=== PATIENT | male | born 1965 | race Caucasian/White ===

== ENCOUNTER 2017-05-03 07:55 | Day surgery (SDC) | payer OTHER ==
[~2017-05-03] VITALS: Ht 172.7 cm; Wt 65.8 kg
[~2017-05-03 07:55] MED LIST: ASPIRIN325 MG PO; CARISOPRODOL350 MG PO; DIAZEPAM5 MG PO; HYDROCODON-ACE1 EAC8 PO; LAMOTRIGINE200 MG PO; LISINOPRIL5 MG PO; MELOXICAM15 MG PO; RANITIDINE HCL150 MG PO; TIZANIDINE HCL4 MG PO
--- NOTE | 2017-05-03 09:27 | NUR ---
05/03/17 0927 Monique Cali 3599-PATIENT ARRIVED TO PACU ON 6L MASK O2 SAT 100% PATIENT NONAROUSABLE. LAYING ON LEFT LATERAL SIDE. ABDOMEN ROUND AND SOFT. SR.
--- NOTE | 2017-05-05 14:06 | OR ---
[facility] [address] [place], [place] [address] Signed DATE OF SERVICE: 05/03/2017 PREOPERATIVE DIAGNOSIS: Screening. POSTOPERATIVE DIAGNOSES: A 5-mm polyp at 42 cm. Minimal sigmoid diverticulosis. Minimal internal hemorrhoids. Indurated prostate, left greater than right. PROCEDURE: Colonoscopy with hot biopsy. ESTIMATED BLOOD LOSS: None. INDICATIONS: Jasmin is a 52-year-old gentleman who was asked to see me for a colonoscopy. He has had vague lower abdominal pains, but otherwise, he has no lower GI complaints. There is no family history of colon cancer or polyps. He is disabled because of his back and has to take hydrocodone up to 4 times a day. Although, he has weaned himself off that and has been using quite a bit of Tylenol. He also likes a little marijuana each day and sometimes needs tizanidine. In the office, I gave him a booklet on colonoscopy and we looked at it together. He understands the nature of the test along with the risks including but not limited to gas bloating, crampy abdominal pain, bleeding, perforation, requiring surgery, and missed diagnosis. Also, he understands the need for IV conscious sedation. Given his above situation, we asked an anesthesia provider to help us with increased monitoring and sedation with propofol. He had expressed understanding and wished to proceed. PROCEDURE NOTE: Jasmin was taken into our endoscopy suite and placed in the left lateral decubitus position. He was given IV sedation with propofol per nurse director of strategic sourcing. A digital rectal exam was performed and he does have a slightly enlarged and indurated prostate, also the left side is a little more prominent than the right. After this, the adult colonoscope was introduced and advanced all the way around into the cecum under direct visualization with camera without difficulty. His prep was quite good. We found just a small polypoid lesion at 42 cm, which we removed with a hot biopsy forceps. He also has a few small diverticula in the sigmoid colon. The rectum itself was unremarkable. Upon retroflexion of scope, he has very small internal hemorrhoid columns. After this, the gas was suctioned out. The colonoscope removed. Figueroa tolerated the procedure quite well. RECOMMENDATIONS: Figueroa foster ollow up in my office in 7-14 days to review his results. Electronically Signed By: MARY PALACIOS MD 05/05/17 1406 PATIENT NAME: JASMIN CHAWLA OPERATIVE REPORT DATE OF : 61 PHYSICIAN: MARY PALACIOS MD REPORT #: [id number] REPORT IS CONFIDENTIAL AND NOT TO BE RELEASED WITHOUT AUTHORIZATION [facility] [address] [place], [place] [address] Signed Mary Palacios MD AB/Modl /[id number] cc: Dr. Nicholas Hester . Mary Palacios MD Electronically Signed By: MARY PALACIOS MD 05/05/17 1406 PATIENT NAME: JASMIN CHAWLA OPERATIVE REPORT DATE OF : 61 PHYSICIAN: MARY PALACIOS MD REPORT #: [id number] REPORT IS CONFIDENTIAL AND NOT TO BE RELEASED WITHOUT AUTHORIZATION
== END 2017-05-03 10:07 | disposition home or self-care (01) ==
LOC: OPS 07:55 → DS 07:55 → OPS 08:30
PROVIDERS: Colon & Rectal Surgery
PROC: 0DBE8ZX Excision of Large Intestine, Via Natural or Artificial Opening Endoscopic, Diagnostic (ICD-10-PCS; principal; 2017-05-03 08:30)
DX: Z12.11 Encounter for screening for malignant neoplasm of colon (principal); D12.6 Benign neoplasm of colon, unspecified; K57.30 Diverticulosis of large intestine without perforation or abscess without bleeding; K64.8 Other hemorrhoids; I10 Essential (primary) hypertension; K21.9 Gastro-esophageal reflux disease without esophagitis; E78.5 Hyperlipidemia, unspecified; M19.90 Unspecified osteoarthritis, unspecified site; D64.9 Anemia, unspecified; Z86.73 Personal history of transient ischemic attack (TIA), and cerebral infarction without residual deficits; Z87.891 Personal history of nicotine dependence; Z90.89 Acquired absence of other organs; Z90.81 Acquired absence of spleen
CPT/HCPCS: 00810; J2250; J2704; J3010

== ENCOUNTER 2019-10-11 05:50 | Day surgery (SDC) | payer OTHER ==
[~2019-10-11] VITALS: Ht 172.7 cm; Wt 61.2 kg
== END 2019-10-11 08:05 | disposition home or self-care (01) ==
LOC: DS 05:50 → OPS 05:50 → DS 06:45 → OPS 08:05 → DS 12:00
PROC: 01N50ZZ Release Median Nerve, Open Approach (ICD-10-PCS; principal; 2019-10-11)
DX: G56.03 Carpal tunnel syndrome, bilateral upper limbs (principal); F12.90 Cannabis use, unspecified, uncomplicated; Z79.899 Other long term (current) drug therapy; Z79.82 Long term (current) use of aspirin; Z86.73 Personal history of transient ischemic attack (TIA), and cerebral infarction without residual deficits; Z87.891 Personal history of nicotine dependence
CPT/HCPCS: J0690; J2250; J2704; J3010; J7121

== ENCOUNTER 2021-03-24 14:11 | Emergency (ER) | payer OTHER ==
[~2021-03-24] VITALS: Ht 172.7 cm; Wt 61.2 kg
[~2021-03-24 14:11] MED LIST changes: +HYDROCODON-ACE1 EA10 PO
[2021-03-24] MEDS ORDERED: PRAMIPEXOLE D0.25 MG PO (14:18)
[2021-03-24] MEDS ORDERED: NEURONTIN100 MG PO (16:47)
[2021-03-24] MEDS ORDERED: PREDNISONE1 MG PO (16:47)
--- NOTE | 2021-03-25 18:33 | EKG ---
[facility] [address] [facility] [place] [address] Signed Normal sinus rhythm Possible Left atrial enlargement Borderline ECG When compared with ECG of 08-OCT-2019 11:06, No significant change was found Confirmed by RADHA PEREZ MD ([id number]) on 03/25/2021 6:33:04 PM Electronically Signed By: RADHA PEREZ MD 03/25/211832 PATIENT NAME: DENTONJASMIN LIZZIE Electrocardiogram DATE OF : 61 PHYSICIAN: RADHA PEREZ MD REPORT #: [id number] REPORT IS CONFIDENTIAL AND NOT TO BE RELEASED WITHOUT AUTHORIZATION
== END 2021-03-24 17:17 | disposition home or self-care (01) ==
LOC: ED 14:11
DX: M54.16 Radiculopathy, lumbar region (principal); Z20.822 Contact with and (suspected) exposure to COVID-19; I10 Essential (primary) hypertension; Z87.891 Personal history of nicotine dependence; Z79.899 Other long term (current) drug therapy; Z79.82 Long term (current) use of aspirin
CPT/HCPCS: 71275; 74174; 80053; 81001; 84484; 85025; 85379; 86850; 86900; 86901; 93005; 93010; 96361; 99284-25; C9803; J1170; J2405; J7030; Q9967; U0003

== ENCOUNTER 2021-03-26 08:48 | Emergency (ER) | payer OTHER ==
[~2021-03-26] VITALS: Ht 172.7 cm; Wt 61.2 kg
[~2021-03-26 08:48] MED LIST changes: +NEURONTIN100 MG PO; +PRAMIPEXOLE D0.25 MG PO; +PREDNISONE1 MG PO
--- OUTSIDE RECORDS SUMMARY | 2021-03-26 08:52 | XMS ---
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 [place] VISIT COUNT (12 MO[address] [facility] TOTAL 2 NOTE: Visits indicate total known visits. ED/UCC VISIT TRACKING (12 MO.) 03/26/2021 08:49 VLADIMIR Arellano OR TYPE: Emergency COMPLAINT: - TURNING BLUE, BREATHING ISSUES 03/24/2021 14:12 VLADIMIR Arellano OR TYPE: Emergency COMPLAINT: - NEAR SYNCOPE EPISODE INPATIENT VISIT TRACKING (12 MO.) No inpatient visits to display in this time frame [email or web address]
--- NOTE | 2021-03-27 14:06 | EKG ---
[facility] [address] [facility] [place], [place] [address] Signed Sinus tachycardia Nonspecific ST and T wave abnormality Abnormal ECG When compared with ECG of 26-MAR-2021 08:57, (Unconfirmed) ST no longer depressed in Anterior leads Nonspecific T wave abnormality, worse in Inferior leads Confirmed by ELISA HENDRIX DO ([id number]) on 03/27/2021 2:05:58 PM Electronically Signed By: ELISA HENDRIX DO 03/27/21 1406 PATIENT NAME: JASMIN CHAWLA LIZZIE Electrocardiogram DATE OF : 61 PHYSICIAN: ELISA HENDRIX DO REPORT #: [id number] REPORT IS CONFIDENTIAL AND NOT TO BE RELEASED WITHOUT AUTHORIZATION
== END 2021-03-26 13:43 | disposition short-term general hospital (02) ==
LOC: ED 08:48
DX: N17.9 Acute kidney failure, unspecified (principal); J96.01 Acute respiratory failure with hypoxia; E87.2 Acidosis; Z20.822 Contact with and (suspected) exposure to COVID-19; I10 Essential (primary) hypertension; Z87.891 Personal history of nicotine dependence; Z79.52 Long term (current) use of systemic steroids; Z79.899 Other long term (current) drug therapy; Z79.82 Long term (current) use of aspirin
CPT/HCPCS: 71045; 80053; 81001; 82010; 82803; 83605; 84484; 85007; 85025; 93005; 93010; 96365; 96375; 99285-25; C9803; G0480; J2543; J7030; U0003

== ENCOUNTER 2024-10-16 05:55 | Day surgery (SDC) | payer OTHER ==
[2024-10-08 11:32] VITALS: BP 130/87
[~2024-10-16] VITALS: Ht 172.7 cm; Wt 61.4 kg
[2024-10-16 06:07] VITALS: BP 146/98
[2024-10-16] MEDS ORDERED: LACTATED RINGER'S 1,000 ML IV SCH (07:00)
[2024-10-16] MEDS ORDERED: IBLOOD GLUCOSE TEST STRIP 1 EA TEST VI PRN (07:00)
[2024-10-16] MEDS ORDERED: CEFAZOLIN SODIUM 2 GM/20 ML SYR IV SCH (07:00)
[2024-10-16] MEDS ORDERED: LIDOCAINE HCL 1% 5 ML SDV INJ ONE (07:00)
[2024-10-16] MEDS ORDERED: LIDOCAINE HCL 2% 5 ML SDV ONE (07:14)
[2024-10-16] MEDS ORDERED: propofoL 200 MG/20 ML VIAL ONE (07:14)
--- NOTE | 2024-10-16 07:37 | NUR ---
PT NOT AVAILABLE FOR VISIT. PROVIDED PRAYER.
[2024-10-16] MEDS ORDERED: fentaNYL citrate 100 MCG/2 ML VIAL ONE (07:41)
--- NOTE | 2024-10-16 08:19 | NUR ---
10/16/24 0819 Swati Gaona 0757- PT ARRIVES TO THE PACU WITH A NATURAL AIRWAY ON 6L OF O2 VIA MASK. BREATHING IS EVEN AND UNLABORED. PT OPENS HIS EYES BREIFLY AND CLOSES THEM AND RESTS LAYING ON HIS LEFT SIDE. LR IS INFUSING IN HIS R HAND. ABDOMEN IS SOFT AND NONDISTENDED. PT DENIES PAIN AND NAUSEA WHEN ASKED. PT IS ENCOURAGED TO PASS GAS AND PT STATES HE IS PASSING GAS. 0806- O2 TURNED OFF AND REMOVED. PT SATS IN THE HIGH 90S. PT DENIES PAIN AND NAUSEA. PT IS RESTING WITH NO APPARENT DISTRESS.
[2024-10-16 08:32] VITALS: BP 136/97
--- NOTE | 2024-10-16 10:07 | OR ---
[facility] [address] [place] [address] Signed DATE OF OPERATION: 10/16/2024 SURGEON: Mray Palacios MD PREOPERATIVE DIAGNOSES: 1. Personal history of a 5 mm tubular adenomatous polyp in 2017 at age 51. 2. Internal hemorrhoids. 3. Diverticulosis. POSTOPERATIVE DIAGNOSES: 1. Minimal left-sided diverticulosis. 2. Minimal internal hemorrhoids. 3. A 3 mm periappendiceal polyp. 4. A 3 mm polyp at proximal transverse colon. PROCEDURE: Colonoscopy biopsy. ESTIMATED BLOOD LOSS: None. INDICATIONS: Jasmin is a 59-year-old gentleman asked to see me for followup colonoscopy. He was unable to come in 2021 due to some family obligations. I had helped him back in 2017 at the age of 51. He had a small 5 mm tubular adenomatous polyp removed at 42 cm Dictation Ends Here MD TALISHA Alvarado/SAVANNAHL /[id number] Electronically Signed By: MARY PALACIOS MD 10/16/24 1007 PATIENT NAME: JASMIN CHAWLA OPERATIVE REPORT DATE OF : 61 REPORT #: [id number] PHYSICIAN: MARY PALACIOS MD PCP: CHEYANNE MEZA PA-C REPORT IS CONFIDENTIAL AND NOT TO BE RELEASED WITHOUT AUTHORIZATION [address] [address] Signed Copies: ~ Electronically Signed By: MARY PALACIOS MD 10/16/24 1007 PATIENT NAME: JASMIN CHAWLA OPERATIVE REPORT DATE OF : 61 REPORT #: [id number] PHYSICIAN: MARY PALACIOS MD PCP: CHEYANNE MEZA PA-C REPORT IS CONFIDENTIAL AND NOT TO BE RELEASED WITHOUT AUTHORIZATION
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
== END 2024-10-16 08:43 | disposition home or self-care (01) ==
LOC: DS 05:55
PROVIDERS: ATTEND Colon & Rectal Surgery
PROC: 0DBL8ZZ Excision of Transverse Colon, Via Natural or Artificial Opening Endoscopic (ICD-10-PCS; 2024-10-16)
PROC: 0DBH8ZZ Excision of Cecum, Via Natural or Artificial Opening Endoscopic (ICD-10-PCS; principal; 2024-10-16 07:30)
DX: D12.3 Benign neoplasm of transverse colon (principal); K63.5 Polyp of colon; K64.8 Other hemorrhoids; K57.30 Diverticulosis of large intestine without perforation or abscess without bleeding; I10 Essential (primary) hypertension; R56.9 Unspecified convulsions; F12.10 Cannabis abuse, uncomplicated; Z79.82 Long term (current) use of aspirin; Z79.899 Other long term (current) drug therapy
CPT/HCPCS: 00811; 88305; J0690; J2003; J2704; J3010; J7121